=== PATIENT | male | born 1965 | race Caucasian/White ===

== ENCOUNTER 2021-04-25 07:16 | Day surgery (SDC) | payer MEDICAID, SELFPAY ==
[~2021-04-25] VITALS: Ht 177.8 cm; Wt 93.0 kg
[2021-04-25] MEDS ORDERED: MEPERIDINE 100 MG INJ. 100 MG/ML VIAL ONE (07:48)
[2021-04-25] MEDS ORDERED: MIDAZOLAM HCL 5 MG/5 ML VIAL ONE (07:48)
[2021-04-25] MEDS ORDERED: SIMETHICONE 40 MG/0.6 ML ML ONE (08:19)
[2021-04-25 09:30] VITALS: BP_SYST 102
== END 2021-04-25 10:08 | disposition home or self-care (01) ==
LOC: SDS 07:16 → SMU 07:18 → SDS 10:08
PROVIDERS: ATTEND Internal Medicine
DX: Z12.11 Encounter for screening for malignant neoplasm of colon (principal); K64.8 Other hemorrhoids; Z79.899 Other long term (current) drug therapy; Z20.822 Contact with and (suspected) exposure to COVID-19
CPT/HCPCS: 45378; 99152; G0378; J2175; J2250; U0003